=== PATIENT | male | born 1970 | race Caucasian/White ===

== ENCOUNTER 2017-09-10 02:14 | Emergency (ER) | payer MEDICAID ==
[~2017-09-10] VITALS: Ht 170.2 cm; Wt 65.0 kg
[2017-09-10 03:04] VITALS: BP 145/98
== END 2017-09-10 03:27 | disposition left against medical advice (07) ==
LOC: ER 02:14
DX: F15.10 Other stimulant abuse, uncomplicated (principal); F14.10 Cocaine abuse, uncomplicated; F17.200 Nicotine dependence, unspecified, uncomplicated; Z53.21 Procedure and treatment not carried out due to patient leaving prior to being seen by health care provider
CPT/HCPCS: 93005; Z7610

== ENCOUNTER 2017-10-01 23:11 | Emergency (ER) | payer MEDICAID ==
[~2017-10-01] VITALS: Ht 170.2 cm; Wt 71.0 kg
[2017-10-02 07:09] VITALS: BP 130/75
== END 2017-10-02 07:14 | disposition home or self-care (01) ==
LOC: ER 23:11
DX: F15.10 Other stimulant abuse, uncomplicated (principal); R44.1 Visual hallucinations; I10 Essential (primary) hypertension; F14.10 Cocaine abuse, uncomplicated; F17.210 Nicotine dependence, cigarettes, uncomplicated
CPT/HCPCS: 93005; 99283

== ENCOUNTER 2018-04-27 05:52 | Emergency (ER) | payer MEDICAID ==
[~2018-04-27] VITALS: Ht 170.2 cm; Wt 75.0 kg
[2018-04-27] MEDS ORDERED: ONDANSETRON HCL 4MG/2ML INJ IV STA (06:35)
[2018-04-27] MEDS ORDERED: SODIUM CHLORIDE 0.9% 1,000 ML IV ONE (06:35)
[2018-04-27 06:56] LABS: BASOPHILS % 0.6 % (0.0-2.0); EOSINOPHILS % 0.8 % (0.0-5.0); HEMATOCRIT. 36.7 % (42.0-52.0); HEMOGLOBIN. 11.4 g/dL (14.0-18.0); LYMPHOCYTES % 22.9 % (20.0-50.0); MEAN CORPUSCULAR HEMOGLOBIN 20.7 pg (28.0-32.0); MEAN CORPUSCULAR VOLUME 66.8 fL (80.0-94.0); MEAN PLATELET VOLUME 9.3 fl (7.4-10.4); MONOCYTES % 10.3 % (2.0-8.0); NEUTROPHILS % 65.4 % (40.0-76.0); PLATELET 328 x1000/uL (130-400); RED CELL DISTRIBUTION WIDTH 19.7 % (11.6-14.6)
[2018-04-27 07:02] LABS: CHLORIDE 102 mEq/L (98-107)
[2018-04-27 07:03] LABS: INR 1.1; PROTHROMBIN TIME 11.3 sec (9.1-11.1)
[2018-04-27 07:08] LABS: ETHANOL BLOOD < 10 mg/dL
[2018-04-27 07:38] LABS: PLATELET ESTIMATE NORMAL
[2018-04-27 08:56] LABS: CLARITY URINE CLEAR (CLEAR); COLOR URINE YELLOW (YELLOW); KETONES URINE NEGATIVE (NEGATIVE); LEUKOCYTE ESTERASE URINE NEGATIVE (NEGATIVE); NITRITE URINE NEGATIVE (NEGATIVE); OCCULT BLOOD URINE NEGATIVE (NEGATIVE); PH URINE 6.5 (4.5-8.0); PROTEIN URINE NEGATIVE (NEGATIVE); SPECIFIC GRAVITY URINE 1.006 (1.005-1.030); UROBILINOGEN URINE 0.2 E.U./dL (0.2-1.0)
[2018-04-27] MEDS ORDERED: POTASSIUM CHLORIDE 20MEQ TABLET SR PO ONE (09:00)
[2018-04-27 09:15] LABS: *AMPHETAMINES SCREEN URINE PRESUMTIVE POSITIVE (NEGATIVE); *BARBITURATES SCREEN URINE NEGATIVE (NEGATIVE); *BENZODIAZEPINES SCREEN URINE NEGATIVE (NEGATIVE)
[2018-04-27 09:16] LABS: *COCAINE SCREEN URINE NEGATIVE (NEGATIVE); METHADONE URINE SCREEN NEGATIVE (NEGATIVE); OPIATES URINE SCREEN NEGATIVE (NEGATIVE); PHENCYCLIDINE URINE SCREEN NEGATIVE (NEGATIVE)
[2018-04-27 09:19] LABS: CANNABINOID URINE SCREEN NEGATIVE (NEGATIVE)
[2018-04-27 13:12] VITALS: BP 121/74
== END 2018-04-27 13:14 | disposition home or self-care (01) ==
LOC: ER 05:52
DX: R11.0 Nausea (principal); E87.8 Other disorders of electrolyte and fluid balance, not elsewhere classified; F15.10 Other stimulant abuse, uncomplicated; F17.200 Nicotine dependence, unspecified, uncomplicated; D64.9 Anemia, unspecified; R03.0 Elevated blood-pressure reading, without diagnosis of hypertension
CPT/HCPCS: 36415; 80053; 80305; 80307; 80320; 80329; 81003; 83690; 83880; 84484; 85025; 85610; 99283; J2405; J7030; Z7610; G0480

== ENCOUNTER 2019-01-01 03:59 | Emergency (ER) | payer MEDICAID ==
[~2019-01-01] VITALS: Ht 170.2 cm; Wt 75.0 kg
[2019-01-01 05:19] VITALS: BP 132/87
[2019-01-01] MEDS ORDERED: IBUPROFEN 600MG TABLET PO ONE (06:45)
[2019-01-01 08:06] LABS: BASOPHILS % 0.5 % (0.0-2.0); EOSINOPHILS % 0.2 % (0.0-5.0); HEMATOCRIT. 42.7 % (42.0-52.0); LYMPHOCYTES % 15.8 % (20.0-50.0); MEAN CORPUSCULAR HEMOGLOBIN 24.8 pg (28.0-32.0); MEAN CORPUSCULAR VOLUME 75.6 fL (80.0-94.0); MEAN PLATELET VOLUME 10.1 fl (7.4-10.4); MONOCYTES % 11.2 % (2.0-8.0); NEUTROPHILS % 72.3 % (40.0-76.0); PLATELET 243 x1000/uL (130-400); RED BLOOD CELL COUNT 5.65 mill/uL (4.7-6.1); RED CELL DISTRIBUTION WIDTH 18.8 % (11.6-14.6)
[2019-01-01 08:12] LABS: CHLORIDE 101 mEq/L (98-107)
[2019-01-01 08:16] LABS: ETHANOL BLOOD < 10 mg/dL
== END 2019-01-01 08:04 | disposition left against medical advice (07) ==
LOC: ER 03:59
DX: S90.01XA Contusion of right ankle, initial encounter (principal); R00.0 Tachycardia, unspecified; F15.10 Other stimulant abuse, uncomplicated; F17.200 Nicotine dependence, unspecified, uncomplicated; X50.1XXA Overexertion from prolonged static or awkward postures, initial encounter; Y93.01 Activity, walking, marching and hiking; Y92.89 Other specified places as the place of occurrence of the external cause; Y99.8 Other external cause status
CPT/HCPCS: 36415; 73610; 80048; 80320; 85025; 93005; 99284; Z7610; G0480

== ENCOUNTER 2019-01-01 20:29 | Emergency (ER) | payer MEDICAID ==
[~2019-01-01] VITALS: Ht 170.2 cm; Wt 73.0 kg
[2019-01-01 21:17] LABS: BASOPHILS % 0.6 % (0.0-2.0); EOSINOPHILS % 0.2 % (0.0-5.0); HEMATOCRIT. 40.9 % (42.0-52.0); HEMOGLOBIN. 13.3 g/dL (14.0-18.0); LYMPHOCYTES % 15.5 % (20.0-50.0); MEAN CORPUSCULAR HEMOGLOBIN 24.6 pg (28.0-32.0); MEAN CORPUSCULAR VOLUME 75.8 fL (80.0-94.0); MONOCYTES % 12.7 % (2.0-8.0); PLATELET 245 x1000/uL (130-400); RED CELL DISTRIBUTION WIDTH 19.2 % (11.6-14.6)
[2019-01-01 21:19] LABS: CHLORIDE 100 mEq/L (98-107)
[2019-01-01] MEDS: SODIUM CHLORIDE 0.9% 1,000 ML IV ONE (21:21)
[2019-01-01 22:05] VITALS: BP 138/74
== END 2019-01-01 22:26 | disposition home or self-care (01) ==
LOC: ER 20:29
DX: S61.432A Puncture wound without foreign body of left hand, initial encounter (principal); F41.9 Anxiety disorder, unspecified; F15.10 Other stimulant abuse, uncomplicated; F17.200 Nicotine dependence, unspecified, uncomplicated; R00.0 Tachycardia, unspecified; R42 Dizziness and giddiness; R11.10 Vomiting, unspecified; R10.9 Unspecified abdominal pain; X58.XXXA Exposure to other specified factors, initial encounter; Y93.89 Activity, other specified; Y92.89 Other specified places as the place of occurrence of the external cause; Y99.8 Other external cause status
CPT/HCPCS: 36415; 71045; 80053; 84484; 85025; 96360; 99284; J7030

== ENCOUNTER 2019-01-28 10:27 | Emergency (ER) | payer MEDICAID ==
[~2019-01-28] VITALS: Ht 172.7 cm; Wt 80.0 kg
[2019-01-28] MEDS ORDERED: SODIUM CHLORIDE 0.9% 1,000 ML IV ONE (10:55)
[2019-01-28] MEDS ORDERED: LORAZEPAM 2MG/ML CPJ IV ONE (11:00)
[2019-01-28 11:18] LABS: BASOPHILS % 0.6 % (0.0-2.0); EOSINOPHILS % 0.9 % (0.0-5.0); HEMOGLOBIN. 14.6 g/dL (14.0-18.0); LYMPHOCYTES % 15.6 % (20.0-50.0); MEAN CORPUSCULAR HEMOGLOBIN 25.6 pg (28.0-32.0); MEAN CORPUSCULAR VOLUME 77.2 fL (80.0-94.0); MEAN PLATELET VOLUME 10.3 fl (7.4-10.4); MONOCYTES % 8.3 % (2.0-8.0); NEUTROPHILS % 74.6 % (40.0-76.0); PLATELET 238 x1000/uL (130-400); RED CELL DISTRIBUTION WIDTH 19.9 % (11.6-14.6)
[2019-01-28 11:23] LABS: CHLORIDE 99 mEq/L (98-107)
[2019-01-28 11:26] LABS: ETHANOL BLOOD < 10 mg/dL
[2019-01-28 11:56] LABS: PLATELET ESTIMATE NORMAL
[2019-01-28 17:20] VITALS: BP 143/72
== END 2019-01-28 17:56 | disposition home or self-care (01) ==
LOC: ER 10:27
DX: T43.621A Poisoning by amphetamines, accidental (unintentional), initial encounter (principal); F41.9 Anxiety disorder, unspecified; R00.0 Tachycardia, unspecified; Y92.018 Other place in single-family (private) house as the place of occurrence of the external cause
CPT/HCPCS: 36415; 80053; 80320; 85025; 96374; 99283; C1893; J2060; J7030; J7040; Z7610; A4315; G0480

== ENCOUNTER 2019-07-22 08:58 | Inpatient (IN) | payer MEDICAID ==
[~2019-07-22] VITALS: Ht 170.2 cm; Wt 82.6 kg
[2019-07-22] MEDS ORDERED: SODIUM CHLORIDE 0.9% 1,000 ML IV ONE ×2 (09:25→10:32)
[2019-07-22 09:59] LABS: BASOPHILS % 0.7 % (0.0-2.0); EOSINOPHILS % 0.1 % (0.0-5.0); HEMATOCRIT. 48.4 % (42.0-52.0); LYMPHOCYTES % 16.7 % (20.0-50.0); MEAN CORPUSCULAR HEMOGLOBIN 27.1 pg (28.0-32.0); MEAN CORPUSCULAR VOLUME 81.9 fL (80.0-94.0); MONOCYTES % 8.6 % (2.0-8.0); NEUTROPHILS % 73.9 % (40.0-76.0); PLATELET 228 x1000/uL (130-400); RED BLOOD CELL COUNT 5.92 mill/uL (4.7-6.1)
[2019-07-22 10:05] LABS: CHLORIDE 93 mEq/L (98-107); CLARITY URINE CLEAR (CLEAR); COLOR URINE YELLOW (YELLOW); KETONES URINE 3+ (NEGATIVE); LEUKOCYTE ESTERASE URINE NEGATIVE (NEGATIVE); NITRITE URINE NEGATIVE (NEGATIVE); OCCULT BLOOD URINE NEGATIVE (NEGATIVE); PROTEIN URINE NEGATIVE (NEGATIVE); SPECIFIC GRAVITY URINE 1.041 (1.005-1.030); UROBILINOGEN URINE 0.2 E.U./dL (0.2-1.0)
[2019-07-22 10:14] LABS: BETA HYDROXYBUTYRATE 4.7 mMol/L (0.0-0.3)
[2019-07-22 10:14] LABS: BG CARBOXYHEMOGLOBIN 0.7 % (0.5-1.5); BG DEOXYHEMOGLOBIN 4.1 % (0.0-5.0); BG FRACTION INSPIRED OXYGEN 21; BG HCO3 ACT 15.3 mmol/L (22.0-26.0); BG METHEMOGLOBIN 0.5 % (0.0-1.5); BG OXYGEN SATURATION 95.9 % (92.0-98.5); BG OXYHEMOGLOBIN 94.7 % (94.0-97.0); BG PCO2 32.7 mmHg (35.0-45.0); BG PH 7.289 (7.350-7.450); BG SAMPLE SITE RIGHT RADIAL; BG TOTAL HEMOGLOBIN 16.4 g/dL (12.0-18.0); BG VENT MODE ROOM AIR
[2019-07-22] MEDS ORDERED: INSULIN REGULAR (DRIP) 100 UNITS in SODIUM CHLORIDE 0.9% 99 ML IV SCH (10:45)
[2019-07-22] MEDS ORDERED: SODIUM CHLORIDE 0.9% 1,000 ML IV SCH (13:11)
[2019-07-22] MEDS ORDERED: ACETAMINOPHEN 325MG TABLET PO PRN (13:15)
[2019-07-22] MEDS ORDERED: ONDANSETRON HCL 4MG/2ML INJ IV PRN (13:15)
[2019-07-22] MEDS ORDERED: VANCOMYCIN 1250MG in DEXTROSE 5% WATER 250ML IV NR (14:30)
[2019-07-22 15:40] LABS: CHLORIDE 106 mEq/L (98-107)
[2019-07-22] MEDS ORDERED: PIPERACILLIN/TAZOBACTAM 3.375 G in DEXTROSE 5% WATER 50 ML IV SCH (18:00)
[2019-07-22] MEDS: PIPERACILLIN/TAZ 3.375G PREMIX 50 ML IV SCH (18:21)
[2019-07-22] MEDS ORDERED: TRAZODONE HCL 50MG TABLET PO PRN (21:00)
[2019-07-22 23:15] LABS: CHLORIDE 106 mEq/L (98-107)
[2019-07-23] VITALS (10 sets, daily range): BP systolic 124–162; BP diastolic 73–95
[2019-07-23] MEDS ORDERED: VANCOMYCIN 750 MG PREMIX 150 ML IV SCH
[2019-07-23] MEDS: PIPERACILLIN/TAZ 3.375G PREMIX 50 ML IV SCH ×4 (00:35→18:17)
[2019-07-23 00:45] LABS: CHLORIDE 103 mEq/L (98-107)
[2019-07-23] MEDS ORDERED: VANCOMYCIN 1250MG in DEXTROSE 5% WATER 250ML IV SCH ×3 (01:00)
[2019-07-23] MEDS ORDERED: INSULIN REGULAR (DRIP) 100 UNITS in SODIUM CHLORIDE 0.9% 99 ML IV SCH (02:00)
[2019-07-23] MEDS: HEPARIN 5000 UNITS/ML VIAL SUBCUT SCH ×3 (03:20→21:14)
[2019-07-23 04:12] LABS: CHLORIDE 105 mEq/L (98-107)
[2019-07-23 04:15] LABS: HEMATOCRIT. 40.8 % (42.0-52.0); MEAN CORPUSCULAR HEMOGLOBIN 27.4 pg (28.0-32.0); PLATELET 179 x1000/uL (130-400); RED CELL DISTRIBUTION WIDTH 18.7 % (11.6-14.6)
[2019-07-23 04:16] LABS: BASOPHILS % 0.8 % (0.0-2.0); EOSINOPHILS % 0.7 % (0.0-5.0); LYMPHOCYTES % 17.7 % (20.0-50.0); MEAN PLATELET VOLUME 10.6 fl (7.4-10.4); NEUTROPHILS % 73.8 % (40.0-76.0)
[2019-07-23] MEDS ORDERED: DEXT 5%/0.45% NACL 1000ML 1,000 ML IV SCH (06:00)
[2019-07-23] MEDS ORDERED: POTASSIUM CHLORIDE 20MEQ TABLET SR PO SCH (06:00)
[2019-07-23] MEDS ORDERED: INSULIN GLARGINE UD 100 UNITS/ML SYR SUBCUT SCH (07:00)
[2019-07-23 08:16] LABS: CHLORIDE 103 mEq/L (98-107)
[2019-07-23 09:22] LABS: METHADONE URINE SCREEN NEGATIVE (NEGATIVE)
[2019-07-23 09:23] LABS: *AMPHETAMINES SCREEN URINE PRESUMTIVE POSITIVE (NEGATIVE); *BARBITURATES SCREEN URINE NEGATIVE (NEGATIVE); *BENZODIAZEPINES SCREEN URINE NEGATIVE (NEGATIVE); *COCAINE SCREEN URINE NEGATIVE (NEGATIVE); CANNABINOID URINE SCREEN NEGATIVE (NEGATIVE); OPIATES URINE SCREEN NEGATIVE (NEGATIVE); PHENCYCLIDINE URINE SCREEN NEGATIVE (NEGATIVE)
[2019-07-23] MEDS ORDERED: POTASSIUM CHLORIDE 20MEQ TABLET SR PO NR (11:45)
[2019-07-23] MEDS ORDERED: DEXTROSE 50% WATER 50ML SYRINGE IV PRN ×2 (11:45→13:15)
[2019-07-23] MEDS ORDERED: PIPERACILLIN/TAZ 3.375G PREMIX 50 ML IV SCH (12:00)
[2019-07-23] MEDS: BLOOD SUGAR DIAGNOSTIC STRIP TEST SCH ×3 (12:30→21:15)
[2019-07-23 12:41] LABS: CHLORIDE 101 mEq/L (98-107)
[2019-07-23] MEDS: INSULIN REGULAR (HUMULIN R) 300UNITS/3ML SUBCUT SCH ×2 (13:00→18:21)
[2019-07-23] MEDS: VANCOMYCIN 1 G PREMIX 200 ML IV SCH ×2 (13:35→21:15)
[2019-07-23] MEDS: INSULIN LISPRO 100 UNITS/ML SUBCUT SCH ×3 (13:57→21:15)
[2019-07-23] MEDS ORDERED: VANCOMYCIN 1 G PREMIX 200 ML IV SCH (14:00)
[2019-07-23] MEDS ORDERED: INSULIN GLARGINE UD 100 UNITS/ML SYR SUBCUT NR (15:00)
[2019-07-23] MEDS ORDERED: INSULIN LISPRO 100 UNITS/ML SUBCUT SCH (18:00)
[2019-07-23 18:06] LABS: CHLORIDE 103 mEq/L (98-107)
[2019-07-23 20:32] LABS: CHLORIDE 102 mEq/L (98-107)
[2019-07-24] VITALS (9 sets, daily range): BP systolic 103–138; BP diastolic 56–99
[2019-07-24] MEDS: PIPERACILLIN/TAZ 3.375G PREMIX 50 ML IV SCH ×4 (00:27→18:00)
[2019-07-24 00:42] LABS: CHLORIDE 103 mEq/L (98-107)
[2019-07-24 06:08] LABS: CHLORIDE 103 mEq/L (98-107)
[2019-07-24 06:16] LABS: VANCOMYCIN TROUGH 10.7 ug/mL (5.0-10.0)
[2019-07-24 06:23] LABS: BASOPHILS % 0.5 % (0.0-2.0); EOSINOPHILS % 1.5 % (0.0-5.0); HEMATOCRIT. 41.9 % (42.0-52.0); HEMOGLOBIN. 14.1 g/dL (14.0-18.0); LYMPHOCYTES % 32.9 % (20.0-50.0); MEAN CORPUSCULAR HEMOGLOBIN 27.3 pg (28.0-32.0); MEAN CORPUSCULAR VOLUME 80.6 fL (80.0-94.0); MEAN PLATELET VOLUME 10.9 fl (7.4-10.4); MONOCYTES % 6.7 % (2.0-8.0); NEUTROPHILS % 58.4 % (40.0-76.0); PLATELET 173 x1000/uL (130-400); RED BLOOD CELL COUNT 5.19 mill/uL (4.7-6.1)
[2019-07-24] MEDS: VANCOMYCIN 1 G PREMIX 200 ML IV SCH (06:50)
[2019-07-24] MEDS: BLOOD SUGAR DIAGNOSTIC STRIP TEST SCH ×3 (07:30→17:30)
[2019-07-24] MEDS: INSULIN REGULAR (HUMULIN R) 300UNITS/3ML SUBCUT SCH ×3 (08:35→18:02)
[2019-07-24] MEDS: INSULIN LISPRO 100 UNITS/ML SUBCUT SCH ×3 (08:35→18:00)
[2019-07-24] MEDS: HEPARIN 5000 UNITS/ML VIAL SUBCUT SCH (09:08)
[2019-07-24] MEDS ORDERED: INSULIN GLARGINE UD 100 UNITS/ML SYR SUBCUT SCH ×4 (10:00→14:00)
[2019-07-24] MEDS ORDERED: VANCOMYCIN 1250MG in DEXTROSE 5% WATER 250ML IV SCH (13:00)
[2019-07-24 13:22] LABS: CHLORIDE 101 mEq/L (98-107)
[2019-07-24] MEDS ORDERED: POTASSIUM CHLORIDE 20MEQ TABLET SR PO SCH (14:00)
[2019-07-24] MEDS ORDERED: INSU100V3 SUBCUT (14:04)
[2019-07-24] MEDS ORDERED: LANTUSUD SUBCUT (14:04)
[2019-07-24] MEDS ORDERED: SENNOSIDES/DOCUSATE SOD 8.6/50MG TABLET PO NR (14:45)
[2019-07-24] MEDS ORDERED: MAGNESIUM HYDROXIDE 400MG/5ML 30ML UDC PO NR (14:45)
== END 2019-07-24 23:10 | disposition home or self-care (01) | DRG 720 ==
LOC: ER 08:58 → 5EST 11:11 → EDBEDREQDT 07-23 06:02 → EDBEDREQSVC 07-23 06:02 → EDBEDREQTM 07-23 06:02 → ENRESERV 07-23 07:44 → 5EST 07-23 09:27
PROVIDERS: ADMIT Internal Medicine; ATTEND Internal Medicine
DX: A41.9 Sepsis, unspecified organism (principal); E11.10 Type 2 diabetes mellitus with ketoacidosis without coma; E87.8 Other disorders of electrolyte and fluid balance, not elsewhere classified; E87.1 Hypo-osmolality and hyponatremia; E87.6 Hypokalemia; E86.0 Dehydration; F15.10 Other stimulant abuse, uncomplicated; E78.00 Pure hypercholesterolemia, unspecified; Z79.4 Long term (current) use of insulin; Z71.51 Drug abuse counseling and surveillance of drug abuser
CPT/HCPCS: 36415; 36600; 71045; 80048; 80053; 80202; 80305; 81003; 82010; 82375; 82805; 82962; 83036; 83735; 84484; 85025; 93005; 96365; 99291; J1644; J1815; J2405; J2543; J3370; J7030; J7050; J7060

== ENCOUNTER 2019-08-14 19:39 | Emergency (ER) | payer MEDICAID, OTHER ==
[~2019-08-14] VITALS: Ht 170.2 cm; Wt 80.0 kg
[~2019-08-14 19:39] MED LIST: INSU100V3 SUBCUT; LANTUSUD SUBCUT
[2019-08-14] MEDS ORDERED: ASPIRIN 81MG TABLET PO ONE (20:15)
[2019-08-14] MEDS ORDERED: SODIUM CHLORIDE 0.9% 1,000 ML IV ONE (20:45)
[2019-08-14] MEDS ORDERED: LORAZEPAM 1MG TABLET PO ONE (20:45)
[2019-08-14 21:14] LABS: BASOPHILS % 0.7 % (0.0-2.0); EOSINOPHILS % 0.8 % (0.0-5.0); HEMATOCRIT. 39.9 % (42.0-52.0); HEMOGLOBIN. 13.2 g/dL (14.0-18.0); LYMPHOCYTES % 17.3 % (20.0-50.0); MEAN CORPUSCULAR HEMOGLOBIN 26.7 pg (28.0-32.0); MEAN CORPUSCULAR VOLUME 80.5 fL (80.0-94.0); MEAN PLATELET VOLUME 9.5 fl (7.4-10.4); MONOCYTES % 11.4 % (2.0-8.0); NEUTROPHILS % 69.8 % (40.0-76.0); PLATELET 287 x1000/uL (130-400); RED BLOOD CELL COUNT 4.95 mill/uL (4.7-6.1); RED CELL DISTRIBUTION WIDTH 18.7 % (11.6-14.6)
[2019-08-14] MEDS ORDERED: ACETAMINOPHEN 650MG/20.3ML UDC PO SCH (21:15)
[2019-08-14 21:20] LABS: CHLORIDE 102 mEq/L (98-107)
[2019-08-15 02:07] VITALS: BP 107/64
== END 2019-08-15 03:29 | disposition home or self-care (01) ==
LOC: ER 19:43
DX: F19.10 Other psychoactive substance abuse, uncomplicated (principal); R07.9 Chest pain, unspecified; R00.0 Tachycardia, unspecified; E11.9 Type 2 diabetes mellitus without complications; Z79.4 Long term (current) use of insulin
CPT/HCPCS: 36415; 71045; 80053; 80307; 83880; 84484; 85025; 93005; 99285; J7030; Z7610

== ENCOUNTER 2019-10-04 01:52 | Emergency (ER) | payer OTHER, MEDICAID ==
[~2019-10-04] VITALS: Ht 170.2 cm; Wt 77.0 kg
[2019-10-04] MEDS ORDERED: ASPIRIN 81MG TABLET PO ONE (02:30)
[2019-10-04 03:19] LABS: BASOPHILS % 0.6 % (0.0-2.0); CHLORIDE 104 mEq/L (98-107); EOSINOPHILS % 0.6 % (0.0-5.0); HEMATOCRIT. 41.3 % (42.0-52.0); HEMOGLOBIN. 13.4 g/dL (14.0-18.0); LYMPHOCYTES % 22.6 % (20.0-50.0); MEAN CORPUSCULAR HEMOGLOBIN 24.6 pg (28.0-32.0); MEAN CORPUSCULAR VOLUME 75.9 fL (80.0-94.0); MEAN PLATELET VOLUME 10.2 fl (7.4-10.4); MONOCYTES % 11.7 % (2.0-8.0); NEUTROPHILS % 64.5 % (40.0-76.0); PLATELET 309 x1000/uL (130-400); RED BLOOD CELL COUNT 5.44 mill/uL (4.7-6.1); RED CELL DISTRIBUTION WIDTH 19.7 % (11.6-14.6)
[2019-10-04 04:00] VITALS: BP 140/90
== END 2019-10-04 04:34 | disposition home or self-care (01) ==
LOC: ER 02:00
DX: F15.10 Other stimulant abuse, uncomplicated (principal); R53.1 Weakness; E11.9 Type 2 diabetes mellitus without complications
CPT/HCPCS: 36415; 71045; 80053; 82962; 83880; 84484; 85025; 93005; 99285; Z7610

== ENCOUNTER 2019-10-07 02:48 | Emergency (ER) | payer OTHER, MEDICAID ==
[~2019-10-07] VITALS: Ht 170.2 cm; Wt 75.0 kg
[2019-10-07 02:54] VITALS: BP 144/108
== END 2019-10-07 03:05 | disposition left against medical advice (07) ==
LOC: ER 02:53
DX: Z53.21 Procedure and treatment not carried out due to patient leaving prior to being seen by health care provider (principal)
CPT/HCPCS: 93005

== ENCOUNTER 2019-10-22 12:09 | Emergency (ER) | payer OTHER ==
[~2019-10-22] VITALS: Ht 170.2 cm; Wt 73.0 kg
[2019-10-22] MEDS ORDERED: SODIUM CHLORIDE 0.9% 1,000 ML IV ONE (12:43)
[2019-10-22] MEDS ORDERED: ONDANSETRON HCL 4MG/2ML INJ IV STA (12:43)
[2019-10-22 12:54] LABS: EOSINOPHILS % 0.4 % (0.0-5.0); HEMATOCRIT. 42.1 % (42.0-52.0); HEMOGLOBIN. 13.7 g/dL (14.0-18.0); LYMPHOCYTES % 20.5 % (20.0-50.0); MEAN CORPUSCULAR HEMOGLOBIN 24.6 pg (28.0-32.0); MEAN CORPUSCULAR VOLUME 75.5 fL (80.0-94.0); MEAN PLATELET VOLUME 10.2 fl (7.4-10.4); MONOCYTES % 9.5 % (2.0-8.0); NEUTROPHILS % 68.6 % (40.0-76.0); PLATELET 305 x1000/uL (130-400); RED BLOOD CELL COUNT 5.57 mill/uL (4.7-6.1); RED CELL DISTRIBUTION WIDTH 21.1 % (11.6-14.6)
[2019-10-22 13:02] LABS: CHLORIDE 104 mEq/L (98-107); CLARITY URINE CLOUDY (CLEAR); COLOR URINE DARK YELLOW (YELLOW); KETONES URINE 2+ (NEGATIVE); LEUKOCYTE ESTERASE URINE NEGATIVE (NEGATIVE); NITRITE URINE NEGATIVE (NEGATIVE); OCCULT BLOOD URINE NEGATIVE (NEGATIVE); PH URINE 5.5 (4.5-8.0); PROTEIN URINE 1+ (NEGATIVE); SPECIFIC GRAVITY URINE 1.033 (1.005-1.030)
[2019-10-22 13:05] LABS: INR 1.1; PROTHROMBIN TIME 11.6 sec (9.6-11.0)
[2019-10-22 14:53] VITALS: BP 126/76
== END 2019-10-22 14:55 | disposition left against medical advice (07) ==
LOC: ER 12:15
DX: R11.2 Nausea with vomiting, unspecified (principal); F15.20 Other stimulant dependence, uncomplicated; F12.10 Cannabis abuse, uncomplicated; I49.9 Cardiac arrhythmia, unspecified; Z79.4 Long term (current) use of insulin
CPT/HCPCS: 36415; 80053; 81003; 83605; 83690; 84484; 85025; 85610; 93005; 96361; 96374; 99284; J2405; J7030

== ENCOUNTER 2020-03-29 03:14 | Emergency (ER) | payer OTHER ==
[~2020-03-29] VITALS: Ht 170.2 cm; Wt 78.0 kg
[2020-03-29] MEDS ORDERED: ONDANSETRON HCL 4MG/2ML INJ IV STA (03:48)
[2020-03-29] MEDS ORDERED: MAGNESIUM/ALUMINUM HYDROXIDE/SIMETHICONE 30ML UDC PO STA (03:48)
[2020-03-29] MEDS ORDERED: SODIUM CHLORIDE 0.9% 1,000 ML IV ONE (04:00)
[2020-03-29 04:51] VITALS: BP 169/110
[2020-03-29 05:44] LABS: BASOPHILS % 0.5 % (0.0-2.0); EOSINOPHILS % 0.1 % (0.0-5.0); HEMATOCRIT. 48.8 % (42.0-52.0); HEMOGLOBIN. 15.2 g/dL (14.0-18.0); LYMPHOCYTES % 14.2 % (20.0-50.0); MEAN CORPUSCULAR HEMOGLOBIN 24.4 pg (28.0-32.0); MEAN CORPUSCULAR VOLUME 78.4 fL (80.0-94.0); MEAN PLATELET VOLUME 10.8 fl (7.4-10.4); MONOCYTES % 9.2 % (2.0-8.0); PLATELET 288 x1000/uL (130-400); RED BLOOD CELL COUNT 6.22 mill/uL (4.7-6.1); RED CELL DISTRIBUTION WIDTH 18.5 % (11.6-14.6)
[2020-03-29 05:45] LABS: *COCAINE SCREEN URINE NEGATIVE (NEGATIVE)
[2020-03-29 05:46] LABS: *AMPHETAMINES SCREEN URINE PRESUMTIVE POSITIVE (NEGATIVE); *BARBITURATES SCREEN URINE NEGATIVE (NEGATIVE); *BENZODIAZEPINES SCREEN URINE NEGATIVE (NEGATIVE); CANNABINOID URINE SCREEN PRESUMTIVE POSITIVE (NEGATIVE); METHADONE URINE SCREEN NEGATIVE (NEGATIVE); OPIATES URINE SCREEN NEGATIVE (NEGATIVE); PHENCYCLIDINE URINE SCREEN NEGATIVE (NEGATIVE)
[2020-03-29 05:48] LABS: CHLORIDE 99 mEq/L (98-107)
== END 2020-03-29 06:55 | disposition home or self-care (01) ==
LOC: ER 03:14
DX: E11.65 Type 2 diabetes mellitus with hyperglycemia (principal); F12.10 Cannabis abuse, uncomplicated; F15.10 Other stimulant abuse, uncomplicated; F19.10 Other psychoactive substance abuse, uncomplicated; R10.13 Epigastric pain
CPT/HCPCS: 36415; 80053; 80305; 82962; 83690; 85025; 93005; 96360; 99283; J2405; J7030; Z7610

== ENCOUNTER 2020-04-13 12:07 | Emergency (ER) | payer MEDICAID, OTHER ==
[~2020-04-13] VITALS: Ht 170.2 cm; Wt 77.5 kg
[2020-04-13 13:05] LABS: BASOPHILS % 0.6 % (0.0-2.0); EOSINOPHILS % 1.1 % (0.0-5.0); HEMATOCRIT. 43.5 % (42.0-52.0); HEMOGLOBIN. 14.3 g/dL (14.0-18.0); LYMPHOCYTES % 26.5 % (20.0-50.0); MEAN CORPUSCULAR HEMOGLOBIN 25.9 pg (28.0-32.0); MEAN CORPUSCULAR VOLUME 78.5 fL (80.0-94.0); MEAN PLATELET VOLUME 10.8 fl (7.4-10.4); MONOCYTES % 7.3 % (2.0-8.0); NEUTROPHILS % 64.5 % (40.0-76.0); PLATELET 171 x1000/uL (130-400); RED BLOOD CELL COUNT 5.54 mill/uL (4.7-6.1); RED CELL DISTRIBUTION WIDTH 18.3 % (11.6-14.6)
[2020-04-13 13:13] LABS: CHLORIDE 98 mEq/L (98-107)
[2020-04-13 13:15] LABS: CLARITY URINE CLEAR (CLEAR); COLOR URINE YELLOW (YELLOW); KETONES URINE TRACE (NEGATIVE); LEUKOCYTE ESTERASE URINE NEGATIVE (NEGATIVE); NITRITE URINE NEGATIVE (NEGATIVE); OCCULT BLOOD URINE NEGATIVE (NEGATIVE); PH URINE 6.5 (4.5-8.0); PROTEIN URINE NEGATIVE (NEGATIVE); SPECIFIC GRAVITY URINE 1.046 (1.005-1.030); UROBILINOGEN URINE 0.2 E.U./dL (0.2-1.0)
[2020-04-13 13:19] LABS: PHOSPHORUS 3.7 mg/dL (2.5-4.9)
[2020-04-13 13:39] LABS: BG CARBOXYHEMOGLOBIN 0.8 % (0.5-1.5); BG DEOXYHEMOGLOBIN 2.8 % (0.0-5.0); BG FRACTION INSPIRED OXYGEN 21; BG HCO3 ACT 23.4 mmol/L (22.0-26.0); BG METHEMOGLOBIN 0.4 % (0.0-1.5); BG OXYGEN SATURATION 97.2 % (92.0-98.5); BG PCO2 38.4 mmHg (35.0-45.0); BG PH 7.403 (7.350-7.450); BG PO2 93.7 mmHg (75.0-100.0); BG SAMPLE SITE RIGHT RADIAL; BG TOTAL HEMOGLOBIN 14.3 g/dL (12.0-18.0); BG VENT MODE ROOM AIR
[2020-04-13] MEDS ORDERED: SODIUM CHLORIDE 0.9% 1,000 ML IV SCH (15:15)
[2020-04-13 17:02] VITALS: BP 131/82
== END 2020-04-13 17:03 | disposition home or self-care (01) ==
LOC: ER 12:42
DX: E11.65 Type 2 diabetes mellitus with hyperglycemia (principal); F12.10 Cannabis abuse, uncomplicated; Z79.4 Long term (current) use of insulin
CPT/HCPCS: 36415; 36600; 80053; 81003; 82375; 82805; 82962; 83735; 83880; 84100; 84484; 85025; 93005; 99283

== ENCOUNTER 2020-04-15 03:21 | Emergency (ER) | payer MEDICAID, OTHER ==
[~2020-04-15] VITALS: Ht 172.7 cm; Wt 77.0 kg
[2020-04-15] MEDS ORDERED: SODIUM CHLORIDE 0.9% 1,000 ML IV ONE (03:45)
[2020-04-15] MEDS ORDERED: INSULIN REGULAR (HUMULIN R) 300UNITS/3ML VIAL SUBCUT ONE (03:45)
[2020-04-15 04:17] LABS: BASOPHILS % 0.8 % (0.0-2.0); EOSINOPHILS % 1.4 % (0.0-5.0); HEMOGLOBIN. 13.4 g/dL (14.0-18.0); MEAN CORPUSCULAR HEMOGLOBIN 25.8 pg (28.0-32.0); MEAN CORPUSCULAR VOLUME 79.3 fL (80.0-94.0); MEAN PLATELET VOLUME 11.5 fl (7.4-10.4); MONOCYTES % 8.1 % (2.0-8.0); NEUTROPHILS % 52.7 % (40.0-76.0); PLATELET 149 x1000/uL (130-400); RED BLOOD CELL COUNT 5.18 mill/uL (4.7-6.1); RED CELL DISTRIBUTION WIDTH 19.3 % (11.6-14.6)
[2020-04-15 04:21] LABS: CHLORIDE 99 mEq/L (98-107)
[2020-04-15 04:30] LABS: CLARITY URINE CLEAR (CLEAR); COLOR URINE YELLOW (YELLOW); KETONES URINE NEGATIVE (NEGATIVE); LEUKOCYTE ESTERASE URINE NEGATIVE (NEGATIVE); NITRITE URINE NEGATIVE (NEGATIVE); OCCULT BLOOD URINE NEGATIVE (NEGATIVE); PROTEIN URINE NEGATIVE (NEGATIVE); SPECIFIC GRAVITY URINE 1.019 (1.005-1.030); UROBILINOGEN URINE 0.2 E.U./dL (0.2-1.0)
[2020-04-15 04:31] LABS: BETA HYDROXYBUTYRATE 0.1 mMol/L (0.0-0.3)
[2020-04-15 05:51] VITALS: BP 138/77
== END 2020-04-15 05:52 | disposition home or self-care (01) ==
LOC: ER 03:21
DX: E10.65 Type 1 diabetes mellitus with hyperglycemia (principal); F12.10 Cannabis abuse, uncomplicated; Z79.4 Long term (current) use of insulin; Z91.14 Patient's other noncompliance with medication regimen
CPT/HCPCS: 36415; 80053; 81003; 82010; 82962; 83690; 85025; 93005; 96360; 96361; 96372; 99284; J1815; J7030

== ENCOUNTER 2020-05-01 22:56 | Emergency (ER) | payer MEDICAID ==
[~2020-05-01] VITALS: Ht 170.2 cm; Wt 78.0 kg
[2020-05-02] MEDS ORDERED: KETOROLAC 60MG/2ML VIAL IM ONE (00:15)
[2020-05-02 01:58] VITALS: BP 125/76
== END 2020-05-02 02:52 | disposition home or self-care (01) ==
LOC: ER 22:56
DX: R51.9 Headache, unspecified (principal); F19.10 Other psychoactive substance abuse, uncomplicated; E11.9 Type 2 diabetes mellitus without complications; Z79.4 Long term (current) use of insulin
CPT/HCPCS: 82962; 96372; 99283; J1885

== ENCOUNTER 2020-06-17 23:11 | Emergency (ER) | payer MEDICAID ==
[~2020-06-17] VITALS: Ht 170.2 cm; Wt 75.0 kg
[2020-06-18] MEDS ORDERED: ACETAMINOPHEN 325MG TABLET PO STA (00:15)
[2020-06-18 01:56] LABS: BASOPHILS % 0.5 % (0.0-2.0); EOSINOPHILS % 0.8 % (0.0-5.0); HEMATOCRIT. 42.9 % (42.0-52.0); HEMOGLOBIN. 14.2 g/dL (14.0-18.0); LYMPHOCYTES % 24.8 % (20.0-50.0); MEAN CORPUSCULAR HEMOGLOBIN 26.4 pg (28.0-32.0); MEAN CORPUSCULAR VOLUME 79.9 fL (80.0-94.0); MEAN PLATELET VOLUME 10.3 fl (7.4-10.4); MONOCYTES % 11.6 % (2.0-8.0); NEUTROPHILS % 62.3 % (40.0-76.0); PLATELET 226 x1000/uL (130-400); RED BLOOD CELL COUNT 5.37 mill/uL (4.7-6.1); RED CELL DISTRIBUTION WIDTH 19.6 % (11.6-14.6)
[2020-06-18 02:02] LABS: CHLORIDE 105 mEq/L (98-107)
[2020-06-18 02:06] LABS: PROTHROMBIN TIME 11.2 sec (9.6-11.0)
[2020-06-18 02:07] LABS: ETHANOL BLOOD < 10 mg/dL
[2020-06-18 03:01] LABS: CLARITY URINE CLEAR (CLEAR); COLOR URINE DARK YELLOW (YELLOW); KETONES URINE 1+ (NEGATIVE); LEUKOCYTE ESTERASE URINE NEGATIVE (NEGATIVE); NITRITE URINE NEGATIVE (NEGATIVE); OCCULT BLOOD URINE NEGATIVE (NEGATIVE); PH URINE 5.5 (4.5-8.0); PROTEIN URINE TRACE (NEGATIVE); SPECIFIC GRAVITY URINE 1.032 (1.005-1.030)
[2020-06-18 03:15] LABS: METHADONE URINE SCREEN NEGATIVE (NEGATIVE); OPIATES URINE SCREEN NEGATIVE (NEGATIVE)
[2020-06-18 03:17] LABS: *AMPHETAMINES SCREEN URINE PRESUMTIVE POSITIVE (NEGATIVE); *BARBITURATES SCREEN URINE NEGATIVE (NEGATIVE); *BENZODIAZEPINES SCREEN URINE NEGATIVE (NEGATIVE); *COCAINE SCREEN URINE NEGATIVE (NEGATIVE); CANNABINOID URINE SCREEN PRESUMTIVE POSITIVE (NEGATIVE); PHENCYCLIDINE URINE SCREEN NEGATIVE (NEGATIVE)
[2020-06-18 05:13] VITALS: BP 121/78
== END 2020-06-18 05:14 | disposition home or self-care (01) ==
LOC: ER 23:52
DX: F15.10 Other stimulant abuse, uncomplicated (principal); F12.10 Cannabis abuse, uncomplicated; F19.10 Other psychoactive substance abuse, uncomplicated; R10.9 Unspecified abdominal pain; E11.9 Type 2 diabetes mellitus without complications; Z79.4 Long term (current) use of insulin
CPT/HCPCS: 36415; 71045; 80053; 80305; 80320; 81003; 82962; 85025; 93005; 99285; G0480

== ENCOUNTER 2021-03-30 22:05 | Emergency (ER) | payer MEDICAID, OTHER ==
[~2021-03-30] VITALS: Ht 170.2 cm; Wt 82.0 kg
[2021-03-30 23:20] VITALS: BP 143/100
== END 2021-03-30 23:43 | disposition home or self-care (01) ==
LOC: ER 22:05
DX: R11.2 Nausea with vomiting, unspecified (principal); G47.00 Insomnia, unspecified; F17.290 Nicotine dependence, other tobacco product, uncomplicated; F15.10 Other stimulant abuse, uncomplicated; E11.9 Type 2 diabetes mellitus without complications
CPT/HCPCS: 99281; 99406

== ENCOUNTER 2021-04-27 00:56 | Emergency (ER) | payer MEDICAID ==
[~2021-04-27] VITALS: Ht 170.2 cm; Wt 82.0 kg
[2021-04-27] MEDS ORDERED: MAGNESIUM/ALUMINUM HYDROXIDE/SIMETHICONE 30ML UDC PO ONE (02:00)
[2021-04-27] MEDS ORDERED: VISCOUS LIDOCAINE 2% 15 ML UDC MM ONE (02:00)
[2021-04-27] MEDS ORDERED: FAMOTIDINE 20MG TABLET PO ONE (02:00)
[2021-04-27 03:29] LABS: BASOPHILS % 0.7 % (0.0-2.0); EOSINOPHILS % 0.5 % (0.0-5.0); HEMATOCRIT. 47.9 % (42.0-52.0); HEMOGLOBIN. 16.3 g/dL (14.0-18.0); LYMPHOCYTES % 19.1 % (20.0-50.0); MEAN CORPUSCULAR HEMOGLOBIN 27.9 pg (28.0-32.0); MONOCYTES % 8.5 % (2.0-8.0); NEUTROPHILS % 71.2 % (40.0-76.0); PLATELET 236 x1000/uL (130-400); RED BLOOD CELL COUNT 5.84 mill/uL (4.7-6.1); RED CELL DISTRIBUTION WIDTH 17.3 % (11.6-14.6)
[2021-04-27 03:36] LABS: CHLORIDE 103 mEq/L (98-107)
[2021-04-27] MEDS ORDERED: SODIUM CHLORIDE 0.9% 1,000 ML IV ONE (04:00)
[2021-04-27 04:09] LABS: *AMPHETAMINES SCREEN URINE NEGATIVE (NEGATIVE); *BARBITURATES SCREEN URINE NEGATIVE (NEGATIVE); CANNABINOID URINE SCREEN PRESUMTIVE POSITIVE (NEGATIVE); METHADONE URINE SCREEN NEGATIVE (NEGATIVE); OPIATES URINE SCREEN NEGATIVE (NEGATIVE); PHENCYCLIDINE URINE SCREEN NEGATIVE (NEGATIVE)
[2021-04-27 04:10] LABS: *BENZODIAZEPINES SCREEN URINE NEGATIVE (NEGATIVE); *COCAINE SCREEN URINE NEGATIVE (NEGATIVE)
[2021-04-27] MEDS ORDERED: METF-414 MT (04:26)
[2021-04-27] MEDS ORDERED: PROT20 MT (04:27)
[2021-04-27] MEDS ORDERED: HYDROCODONE/ACETAMINOPHEN 5/325MG TABLET PO ONE (04:45)
[2021-04-27 06:15] VITALS: BP 148/98
== END 2021-04-27 06:19 | disposition home or self-care (01) ==
LOC: ER 00:56
DX: R10.13 Epigastric pain (principal); E11.65 Type 2 diabetes mellitus with hyperglycemia; F15.10 Other stimulant abuse, uncomplicated
CPT/HCPCS: 36415; 71045; 76705; 80053; 80305; 82962; 83690; 83880; 84484; 85025; 93005; 99285; Z7610; A4315

== ENCOUNTER 2021-04-28 21:11 | Emergency (ER) | payer MEDICAID ==
[~2021-04-28] VITALS: Ht 170.2 cm; Wt 82.0 kg
[~2021-04-28 21:11] MED LIST changes: +METF-414 MT; +PROT20 MT
[2021-04-29] MEDS ORDERED: ACETAMINOPHEN 500MG TABLET PO ONE (04:00)
[2021-04-29] MEDS ORDERED: SODIUM CHLORIDE 0.9% 1,000 ML IV ONE (04:00)
[2021-04-29 04:24] LABS: BASOPHILS % 0.7 % (0.0-2.0); EOSINOPHILS % 1.2 % (0.0-5.0); HEMATOCRIT. 43.8 % (42.0-52.0); HEMOGLOBIN. 15.1 g/dL (14.0-18.0); LYMPHOCYTES % 40.3 % (20.0-50.0); MEAN CORPUSCULAR VOLUME 81.4 fL (80.0-94.0); MEAN PLATELET VOLUME 10.6 fl (7.4-10.4); MONOCYTES % 8.9 % (2.0-8.0); NEUTROPHILS % 48.9 % (40.0-76.0); PLATELET 201 x1000/uL (130-400); RED BLOOD CELL COUNT 5.39 mill/uL (4.7-6.1); RED CELL DISTRIBUTION WIDTH 16.5 % (11.6-14.6)
[2021-04-29 04:36] LABS: CHLORIDE 99 mEq/L (98-107)
[2021-04-29 04:42] LABS: BETA HYDROXYBUTYRATE 1.4 mMol/L (0.0-0.3)
[2021-04-29 05:34] LABS: *AMPHETAMINES SCREEN URINE NEGATIVE (NEGATIVE); *BARBITURATES SCREEN URINE NEGATIVE (NEGATIVE); *BENZODIAZEPINES SCREEN URINE NEGATIVE (NEGATIVE); *COCAINE SCREEN URINE NEGATIVE (NEGATIVE); METHADONE URINE SCREEN NEGATIVE (NEGATIVE); OPIATES URINE SCREEN NEGATIVE (NEGATIVE)
[2021-04-29 05:35] LABS: CANNABINOID URINE SCREEN PRESUMTIVE POSITIVE (NEGATIVE); PHENCYCLIDINE URINE SCREEN NEGATIVE (NEGATIVE)
[2021-04-29 08:14] VITALS: BP 135/72
== END 2021-04-29 08:49 | disposition home or self-care (01) ==
LOC: ER 21:11
DX: E11.65 Type 2 diabetes mellitus with hyperglycemia (principal); M79.10 Myalgia, unspecified site; R10.9 Unspecified abdominal pain; F15.10 Other stimulant abuse, uncomplicated; Z79.4 Long term (current) use of insulin
CPT/HCPCS: 36415; 80053; 80305; 82010; 82962; 83880; 84484; 85025; 93005; 99284; J7030

== ENCOUNTER 2021-06-02 05:55 | Emergency (ER) | payer MEDICAID ==
[~2021-06-02] VITALS: Ht 162.6 cm; Wt 77.0 kg
[2021-06-02] MEDS ORDERED: LORAZEPAM 2MG/ML CPJ IV ONE (06:15)
[2021-06-02] MEDS ORDERED: SODIUM CHLORIDE 0.9% 1,000 ML IV ONE (06:15)
[2021-06-02] MEDS ORDERED: CITALOPRAM HYDROBROMIDE 10MG TABLET PO SCH (09:00)
[2021-06-02 11:18] LABS: BASOPHILS % 0.4 % (0.0-2.0); EOSINOPHILS % 0.1 % (0.0-5.0); HEMATOCRIT. 42.4 % (42.0-52.0); LYMPHOCYTES % 9.1 % (20.0-50.0); MEAN CORPUSCULAR HEMOGLOBIN 26.7 pg (28.0-32.0); MEAN CORPUSCULAR VOLUME 80.9 fL (80.0-94.0); MEAN PLATELET VOLUME 10.1 fl (7.4-10.4); MONOCYTES % 7.3 % (2.0-8.0); NEUTROPHILS % 83.1 % (40.0-76.0); PLATELET 325 x1000/uL (130-400); RED BLOOD CELL COUNT 5.24 mill/uL (4.7-6.1); RED CELL DISTRIBUTION WIDTH 16.9 % (11.6-14.6)
[2021-06-02 11:26] LABS: CHLORIDE 99 mEq/L (98-107)
[2021-06-02 11:30] LABS: ETHANOL BLOOD < 10 mg/dL
[2021-06-02 13:04] LABS: CANNABINOID URINE SCREEN PRESUMTIVE POSITIVE (NEGATIVE); METHADONE URINE SCREEN NEGATIVE (NEGATIVE); OPIATES URINE SCREEN NEGATIVE (NEGATIVE); PHENCYCLIDINE URINE SCREEN NEGATIVE (NEGATIVE)
[2021-06-02 13:07] LABS: *AMPHETAMINES SCREEN URINE PRESUMTIVE POSITIVE (NEGATIVE); *BENZODIAZEPINES SCREEN URINE NEGATIVE (NEGATIVE)
[2021-06-02 13:10] LABS: *BARBITURATES SCREEN URINE NEGATIVE (NEGATIVE)
[2021-06-02 13:12] LABS: *COCAINE SCREEN URINE NEGATIVE (NEGATIVE)
[2021-06-02 20:00] VITALS: BP 136/72
== END 2021-06-02 20:29 | disposition home or self-care (01) ==
LOC: ER 05:55
DX: F15.129 Other stimulant abuse with intoxication, unspecified (principal); E11.9 Type 2 diabetes mellitus without complications; Z79.4 Long term (current) use of insulin
CPT/HCPCS: 36415; 80053; 80305; 80320; 82962; 85025; 93005; 96361; 96374; 99285; J2060; J7030; G0480

== ENCOUNTER 2021-06-16 05:12 | Emergency (ER) | payer MEDICAID ==
[~2021-06-16] VITALS: Ht 170.2 cm; Wt 78.6 kg
[2021-06-16 05:14] VITALS: BP 153/108
[2021-06-16 06:29] LABS: BASOPHILS % 0.4 % (0.0-2.0); EOSINOPHILS % 0.3 % (0.0-5.0); HEMATOCRIT. 44.6 % (42.0-52.0); LYMPHOCYTES % 22.3 % (20.0-50.0); MEAN CORPUSCULAR HEMOGLOBIN 27.4 pg (28.0-32.0); MEAN CORPUSCULAR VOLUME 81.7 fL (80.0-94.0); MEAN PLATELET VOLUME 10.5 fl (7.4-10.4); MONOCYTES % 10.6 % (2.0-8.0); NEUTROPHILS % 66.4 % (40.0-76.0); PLATELET 337 x1000/uL (130-400); RED BLOOD CELL COUNT 5.46 mill/uL (4.7-6.1); RED CELL DISTRIBUTION WIDTH 17.1 % (11.6-14.6)
[2021-06-16 06:37] LABS: CHLORIDE 99 mEq/L (98-107)
[2021-06-16 06:44] LABS: ETHANOL BLOOD < 10 mg/dL
[2021-06-16 09:42] LABS: CLARITY URINE CLEAR (CLEAR); COLOR URINE YELLOW (YELLOW); KETONES URINE 3+ (NEGATIVE); LEUKOCYTE ESTERASE URINE NEGATIVE (NEGATIVE); NITRITE URINE NEGATIVE (NEGATIVE); OCCULT BLOOD URINE NEGATIVE (NEGATIVE); PH URINE 5.5 (4.5-8.0); PROTEIN URINE 1+ (NEGATIVE); SPECIFIC GRAVITY URINE 1.029 (1.005-1.030); UROBILINOGEN URINE 0.2 E.U./dL (0.2-1.0)
[2021-06-16 09:57] LABS: *AMPHETAMINES SCREEN URINE PRESUMTIVE POSITIVE (NEGATIVE); *BARBITURATES SCREEN URINE NEGATIVE (NEGATIVE); *BENZODIAZEPINES SCREEN URINE NEGATIVE (NEGATIVE); *COCAINE SCREEN URINE NEGATIVE (NEGATIVE); CANNABINOID URINE SCREEN PRESUMTIVE POSITIVE (NEGATIVE); METHADONE URINE SCREEN NEGATIVE (NEGATIVE); OPIATES URINE SCREEN NEGATIVE (NEGATIVE); PHENCYCLIDINE URINE SCREEN NEGATIVE (NEGATIVE)
== END 2021-06-16 08:40 | disposition left against medical advice (07) ==
LOC: ER 05:12
DX: R00.2 Palpitations (principal); F15.10 Other stimulant abuse, uncomplicated; E11.9 Type 2 diabetes mellitus without complications; Z79.4 Long term (current) use of insulin
CPT/HCPCS: 36415; 80053; 80305; 80320; 81003; 82962; 85025; 93005; 99284; G0480

== ENCOUNTER 2021-08-14 03:46 | Emergency (ER) | payer MEDICAID ==
[~2021-08-14] VITALS: Ht 170.2 cm; Wt 79.0 kg
[2021-08-14 03:52] VITALS: BP 152/99
[2021-08-14] MEDS ORDERED: ONDANSETRON 4MG ODT PO STA (06:43)
[2021-08-14] MEDS ORDERED: MAGNESIUM/ALUMINUM HYDROXIDE/SIMETHICONE 30ML UDC PO STA (06:43)
[2021-08-14] MEDS ORDERED: VISCOUS LIDOCAINE 2% 15 ML UDC PO STA (06:43)
[2021-08-14] MEDS ORDERED: FAMOTIDINE 20MG TABLET PO ONE (06:45)
== END 2021-08-14 07:04 | disposition left against medical advice (07) ==
LOC: ER 03:46
DX: R10.9 Unspecified abdominal pain (principal); F15.19 Other stimulant abuse with unspecified stimulant-induced disorder; E11.9 Type 2 diabetes mellitus without complications; Z79.4 Long term (current) use of insulin
CPT/HCPCS: 93005; 99283

== ENCOUNTER 2021-08-14 07:41 | Emergency (ER) | payer MEDICAID ==
[~2021-08-14] VITALS: Ht 170.2 cm; Wt 80.0 kg
[2021-08-14 07:53] VITALS: BP 126/99
== END 2021-08-14 09:59 | disposition left against medical advice (07) ==
LOC: ER 08:24
DX: Z53.21 Procedure and treatment not carried out due to patient leaving prior to being seen by health care provider (principal); E11.9 Type 2 diabetes mellitus without complications; Z79.4 Long term (current) use of insulin
CPT/HCPCS: 93005

== ENCOUNTER 2021-11-01 22:28 | Emergency (ER) | payer MEDICAID ==
[~2021-11-01] VITALS: Ht 170.2 cm; Wt 79.0 kg
[2021-11-01] MEDS ORDERED: SODIUM CHLORIDE 0.9% 1,000 ML IV ONE (23:00)
[2021-11-01] MEDS ORDERED: ONDANSETRON HCL 4MG/2ML INJ IV ONE (23:00)
[2021-11-01 23:32] LABS: BASOPHILS % 0.5 % (0.0-2.0); EOSINOPHILS % 0.3 % (0.0-5.0); HEMATOCRIT. 43.6 % (42.0-52.0); HEMOGLOBIN. 14.3 g/dL (14.0-18.0); LYMPHOCYTES % 13.3 % (20.0-50.0); MEAN CORPUSCULAR HEMOGLOBIN 25.9 pg (28.0-32.0); MEAN CORPUSCULAR VOLUME 78.7 fL (80.0-94.0); MEAN PLATELET VOLUME 9.7 fl (7.4-10.4); MONOCYTES % 9.2 % (2.0-8.0); NEUTROPHILS % 76.7 % (40.0-76.0); PLATELET 265 x1000/uL (130-400); RED BLOOD CELL COUNT 5.53 mill/uL (4.7-6.1); RED CELL DISTRIBUTION WIDTH 19.4 % (11.6-14.6)
[2021-11-01 23:37] LABS: CHLORIDE 102 mEq/L (98-107)
[2021-11-01] MEDS ORDERED: IBUPROFEN 600MG TABLET PO NR (23:45)
[2021-11-01 23:46] LABS: BETA HYDROXYBUTYRATE 0.1 mMol/L (0.0-0.3)
[2021-11-01 23:48] LABS: CLARITY URINE CLEAR (CLEAR); COLOR URINE YELLOW (YELLOW); KETONES URINE 4+ (NEGATIVE); LEUKOCYTE ESTERASE URINE TRACE (NEGATIVE); NITRITE URINE NEGATIVE (NEGATIVE); OCCULT BLOOD URINE NEGATIVE (NEGATIVE); PROTEIN URINE 2+ (NEGATIVE); SPECIFIC GRAVITY URINE 1.029 (1.005-1.030)
[2021-11-02] MEDS ORDERED: ONDANSETRON HCL 4MG/2ML INJ IV NR (01:15)
[2021-11-02] MEDS ORDERED: CEPH500C2 MT (01:58)
[2021-11-02 02:15] VITALS: BP 122/85
== END 2021-11-02 02:15 | disposition home or self-care (01) ==
LOC: ER 22:28
DX: N39.0 Urinary tract infection, site not specified (principal); Z20.822 Contact with and (suspected) exposure to COVID-19; F15.10 Other stimulant abuse, uncomplicated; E11.9 Type 2 diabetes mellitus without complications
CPT/HCPCS: 36415; 71045; 80053; 81003; 82010; 82962; 83690; 85025; 87426; 93005; 96361; 96374; 99285; C9803; J2405; J7030

== ENCOUNTER 2022-02-28 21:35 | Emergency (ER) | payer MEDICAID ==
[~2022-02-28] VITALS: Ht 170.2 cm; Wt 80.0 kg
[~2022-02-28 21:35] MED LIST changes: +CEPH500C2 MT
[2022-02-28 21:43] VITALS: BP 144/100
== END 2022-03-01 01:22 | disposition left against medical advice (07) ==
LOC: ER 21:47
DX: Z53.21 Procedure and treatment not carried out due to patient leaving prior to being seen by health care provider (principal); I49.9 Cardiac arrhythmia, unspecified
CPT/HCPCS: 93005

== ENCOUNTER 2022-03-22 04:29 | Emergency (ER) | payer MEDICAID ==
[~2022-03-22] VITALS: Ht 170.2 cm; Wt 79.0 kg
[2022-03-22] MEDS ORDERED: MAGNESIUM/ALUMINUM HYDROXIDE/SIMETHICONE 30ML UDC PO STA (05:27)
[2022-03-22] MEDS ORDERED: VISCOUS LIDOCAINE 2% 15 ML UDC PO STA (05:27)
[2022-03-22] MEDS ORDERED: KETOROLAC 30MG/ML VIAL IV STA (05:27)
[2022-03-22] MEDS ORDERED: SODIUM CHLORIDE 0.9% 1,000 ML IV ONE (05:45)
[2022-03-22] MEDS ORDERED: LORAZEPAM 2MG/ML CPJ IV ONE (05:45)
[2022-03-22] MEDS ORDERED: ONDANSETRON HCL 4MG/2ML INJ IV ONE (05:45)
[2022-03-22 06:06] LABS: BASOPHILS % 0.6 % (0.0-2.0); EOSINOPHILS % 0.6 % (0.0-5.0); HEMATOCRIT. 45.9 % (42.0-52.0); HEMOGLOBIN. 15.2 g/dL (14.0-18.0); LYMPHOCYTES % 14.4 % (20.0-50.0); MEAN CORPUSCULAR HEMOGLOBIN 26.7 pg (28.0-32.0); MEAN CORPUSCULAR VOLUME 80.5 fL (80.0-94.0); MONOCYTES % 9.2 % (2.0-8.0); NEUTROPHILS % 75.2 % (40.0-76.0); PLATELET 280 x1000/uL (130-400); RED CELL DISTRIBUTION WIDTH 17.9 % (11.6-14.6)
[2022-03-22 06:13] LABS: PROTHROMBIN TIME 10.9 sec (9.6-11.0)
[2022-03-22 06:17] LABS: CHLORIDE 97 mEq/L (98-107)
[2022-03-22 09:00] VITALS: BP 145/74
== END 2022-03-22 09:05 | disposition home or self-care (01) ==
LOC: ER 04:29
DX: R11.0 Nausea (principal); F15.10 Other stimulant abuse, uncomplicated; E11.9 Type 2 diabetes mellitus without complications; Z98.890 Other specified postprocedural states
CPT/HCPCS: 36415; 71045; 80053; 83690; 84484; 85025; 85610; 93005; 96374; 96375; 99285; J1885; J2060; J2405; J7030

== ENCOUNTER 2023-02-02 00:41 | Emergency (ER) | payer MEDICAID ==
[~2023-02-02] VITALS: Ht 170.2 cm; Wt 78.0 kg
[2023-02-02 00:49] VITALS: PULSE 145; RESP 16
[2023-02-02 00:51] VITALS: BP 145/100; TEMP 98.3; O2SAT 100
== END 2023-02-02 04:13 | disposition left against medical advice (07) ==
LOC: ER 00:41
DX: Z53.21 Procedure and treatment not carried out due to patient leaving prior to being seen by health care provider (principal); I49.9 Cardiac arrhythmia, unspecified
CPT/HCPCS: 93005; 99281

== ENCOUNTER 2023-02-15 21:41 | Emergency (ER) | payer MEDICAID ==
[~2023-02-15] VITALS: Ht 172.7 cm; Wt 81.6 kg
[2023-02-15 21:50] VITALS: BP 162/100; PULSE 148; RESP 18; TEMP 98.5; O2SAT 99
== END 2023-02-16 01:36 | disposition left against medical advice (07) ==
LOC: ER 21:41
DX: M79.642 Pain in left hand (principal); Z53.21 Procedure and treatment not carried out due to patient leaving prior to being seen by health care provider
CPT/HCPCS: 93005; 99281

== ENCOUNTER 2023-06-02 21:24 | Emergency (ER) | payer MEDICAID ==
[~2023-06-02] VITALS: Ht 170.2 cm; Wt 78.1 kg
[2023-06-02 21:43] VITALS: O2SAT 99
[2023-06-02] MEDS ORDERED: HYDR50TA55 PO (23:06)
[2023-06-02] MEDS: DIAZEPAM 2 MG TABLET PO ONE (23:18)
[2023-06-03 00:49] VITALS: BP 112/75; PULSE 98; RESP 18; TEMP 97.8
== END 2023-06-03 01:00 | disposition home or self-care (01) ==
LOC: ER 21:24
DX: F41.9 Anxiety disorder, unspecified (principal); E11.9 Type 2 diabetes mellitus without complications; F15.10 Other stimulant abuse, uncomplicated
CPT/HCPCS: 93005; 99283

== ENCOUNTER 2023-06-10 02:39 | Emergency (ER) | payer MEDICAID ==
[~2023-06-10] VITALS: Ht 170.2 cm; Wt 76.1 kg
[~2023-06-10 02:39] MED LIST changes: +HYDR50TA55 PO
[2023-06-10 02:55] VITALS: O2SAT 100
[2023-06-10 03:58] LABS: EOSINOPHILS % 0.1 % (0.0-5.0); MEAN PLATELET VOLUME 9.4 fl (7.4-10.4); RED CELL DISTRIBUTION WIDTH 19.6 % (11.6-14.6); WHITE BLOOD COUNT 12.6 x1000/uL (4.5-11.0)
[2023-06-10 04:09] LABS: BASOPHILS % 0.5 % (0.0-2.0); CHLORIDE 104 mEq/L (98-107); HEMATOCRIT. 38.7 % (42.0-52.0); LYMPHOCYTES % 9.2 % (20.0-50.0); MEAN CORPUSCULAR HEMOGLOBIN 21.5 pg (28.0-32.0); MEAN CORPUSCULAR VOLUME 69.3 fL (80.0-94.0); MONOCYTES % 12.3 % (2.0-8.0); NEUTROPHILS % 77.9 % (40.0-76.0); PLATELET 387 x1000/uL (130-400); POTASSIUM 4.1 mEq/L (3.5-5.1); RED BLOOD CELL COUNT 5.58 mill/uL (4.7-6.1); SODIUM 136 mEq/L (136-145)
[2023-06-10 04:10] LABS: ADD RBC MORPHOLOGY YES; CALCIUM 9.8 mg/dL (8.7-10.4); CARBON DIOXIDE 21 mEq/L (21-32); DIFFERENTIAL COMMENT 1
[2023-06-10 04:15] LABS: GLUCOSE 190 mg/dL (70-105); UREA NITROGEN BLOOD 15 mg/dL (9-23)
[2023-06-10 04:17] LABS: ALANINE AMINOTRANSFERASE 22 IU/L (10-49); ALBUMIN 5.4 g/dL (3.2-4.8); ASPARTATE AMINOTRANSFERASE 20 IU/L (<34); CREATINE KINASE 151 IU/L (46-171); PROTEIN TOTAL 8.9 g/dL (6.0-8.3)
[2023-06-10 04:22] LABS: ACETAMINOPHEN < 2 ug/mL (10-30); ETHANOL BLOOD < 10 mg/dL (<10)
[2023-06-10] MEDS: SODIUM CHLORIDE 0.9% 1,000 ML IV ONE ×2 (04:51→05:24)
[2023-06-10 04:55] LABS: MICROCYTOSIS 1+; TARGET CELLS 2+; TEAR DROP CELLS 2+
[2023-06-10 04:56] LABS: PLATELET ESTIMATE NORMAL
[2023-06-10 05:14] LABS: CLARITY URINE CLEAR (CLEAR); COLOR URINE YELLOW (YELLOW); GLUCOSE URINE 3+ (NEGATIVE); KETONES URINE 3+ (NEGATIVE); LEUKOCYTE ESTERASE URINE NEGATIVE (NEGATIVE); NITRITE URINE NEGATIVE (NEGATIVE); OCCULT BLOOD URINE NEGATIVE (NEGATIVE); PH URINE 5.5 (4.5-8.0); PROTEIN URINE 1+ (NEGATIVE); SPECIFIC GRAVITY URINE 1.042 (1.005-1.030); UROBILINOGEN URINE 0.2 E.U./dL (0.2-1.0)
[2023-06-10 05:21] LABS: *AMPHETAMINES SCREEN URINE PRESUMPTIVE POSITIVE (NEGATIVE); *BARBITURATES SCREEN URINE NEGATIVE (NEGATIVE); *BENZODIAZEPINES SCREEN URINE NEGATIVE (NEGATIVE); *COCAINE SCREEN URINE NEGATIVE (NEGATIVE)
[2023-06-10 05:22] LABS: CANNABINOID URINE SCREEN PRESUMPTIVE POSITIVE (NEGATIVE); ECSTASY MDMA SCREEN URINE CONF.TEST INDICATED (NEGATIVE); METHADONE URINE SCREEN NEGATIVE (NEGATIVE); OPIATES URINE SCREEN NEGATIVE (NEGATIVE); PHENCYCLIDINE URINE SCREEN NEGATIVE (NEGATIVE)
[2023-06-10 05:24] VITALS: TEMP 98.1
[2023-06-10] MEDS: ACETAMINOPHEN 325MG TABLET PO NR (05:24)
[2023-06-10] MEDS: LORAZEPAM 1MG TABLET PO NR (05:24)
[2023-06-10 05:43] VITALS: BP 158/99; PULSE 127; RESP 18
[2023-06-10 05:48] LABS: SQUAMOUS EPITHELIAL CELL URINE FEW /lpf (RARE/1+)
[2023-06-10 05:51] LABS: BACTERIA URINE NONE SEEN; RBC URINE 0-2 /hpf (0-2)
== END 2023-06-10 06:20 | disposition left against medical advice (07) ==
LOC: ER 02:39
DX: F15.90 Other stimulant use, unspecified, uncomplicated (principal); E11.9 Type 2 diabetes mellitus without complications; Z98.890 Other specified postprocedural states
CPT/HCPCS: 80053; 80305; 81003; 80307; 80329; 80320; 82550; 83690; 85025; 36415; 93005; 96360; 96361; 99284; J7030; Z7610; G0480

== ENCOUNTER 2023-06-11 02:48 | Emergency (ER) | payer MEDICAID ==
[~2023-06-11] VITALS: Ht 172.7 cm; Wt 77.0 kg
[2023-06-11 02:55] VITALS: BP 157/96; PULSE 133; RESP 20; TEMP 98.5; O2SAT 100
== END 2023-06-11 04:35 | disposition left against medical advice (07) ==
LOC: ER 02:48
DX: F41.9 Anxiety disorder, unspecified (principal); Z53.21 Procedure and treatment not carried out due to patient leaving prior to being seen by health care provider
CPT/HCPCS: 99281

== ENCOUNTER 2023-06-22 15:31 | Emergency (ER) | payer MEDICAID ==
[~2023-06-22] VITALS: Ht 167.6 cm; Wt 75.0 kg
[2023-06-22 15:41] VITALS: BP 138/96; PULSE 145; RESP 20; TEMP 98.7; O2SAT 98
== END 2023-06-22 18:51 | disposition left against medical advice (07) ==
LOC: ER 15:31
DX: F41.9 Anxiety disorder, unspecified (principal); Z53.21 Procedure and treatment not carried out due to patient leaving prior to being seen by health care provider
CPT/HCPCS: 93005

== ENCOUNTER 2023-07-09 18:31 | Emergency (ER) | payer OTHER ==
[~2023-07-09] VITALS: Ht 172.7 cm; Wt 80.0 kg
[2023-07-09 18:36] VITALS: BP 179/114; RESP 18; TEMP 98.6; O2SAT 100
== END 2023-07-09 22:11 | disposition left against medical advice (07) ==
LOC: ER 18:31
DX: F41.9 Anxiety disorder, unspecified (principal); Z53.21 Procedure and treatment not carried out due to patient leaving prior to being seen by health care provider

== ENCOUNTER 2023-08-29 02:53 | Emergency (ER) | payer OTHER ==
[~2023-08-29] VITALS: Ht 170.2 cm; Wt 77.0 kg
[2023-08-29 03:26] VITALS: BP 133/89; PULSE 125; RESP 18; TEMP 98.6; O2SAT 99
[2023-08-29 04:11] LABS: BASOPHILS % 0.7 % (0.0-2.0); EOSINOPHILS % 1.1 % (0.0-5.0); HEMATOCRIT. 37.5 % (42.0-52.0); HEMOGLOBIN. 11.8 g/dL (14.0-18.0); MEAN CORPUSCULAR HEMOGLOBIN 21.5 pg (28.0-32.0); MEAN CORPUSCULAR HGB CONC 31.4 g/dL (31.0-37.0); MEAN CORPUSCULAR VOLUME 68.6 fL (80.0-94.0); MEAN PLATELET VOLUME 9.8 fl (7.4-10.4); MONOCYTES % 8.4 % (2.0-8.0); NEUTROPHILS % 72.8 % (40.0-76.0); PLATELET 406 x1000/uL (130-400); RED BLOOD CELL COUNT 5.47 mill/uL (4.7-6.1); RED CELL DISTRIBUTION WIDTH 21.6 % (11.6-14.6); WHITE BLOOD COUNT 9.2 x1000/uL (4.5-11.0)
[2023-08-29 04:17] LABS: ADD RBC MORPHOLOGY YES; DIFFERENTIAL COMMENT 1
[2023-08-29 04:22] LABS: CHLORIDE 102 mEq/L (98-107); POTASSIUM 3.7 mEq/L (3.5-5.1); SODIUM 136 mEq/L (136-145)
[2023-08-29 04:23] LABS: CALCIUM 9.7 mg/dL (8.7-10.4); CARBON DIOXIDE 27 mEq/L (21-32)
[2023-08-29 04:25] LABS: CLARITY URINE CLEAR (CLEAR); COLOR URINE YELLOW (YELLOW); GLUCOSE URINE 3+ (NEGATIVE); KETONES URINE TRACE (NEGATIVE); LEUKOCYTE ESTERASE URINE NEGATIVE (NEGATIVE); NITRITE URINE NEGATIVE (NEGATIVE); OCCULT BLOOD URINE NEGATIVE (NEGATIVE); PROTEIN URINE 1+ (NEGATIVE); SPECIFIC GRAVITY URINE 1.033 (1.005-1.030); UROBILINOGEN URINE 0.2 E.U./dL (0.2-1.0)
[2023-08-29 04:28] LABS: CREATININE 0.9 mg/dL (0.6-1.3); GLUCOSE 163 mg/dL (70-105)
[2023-08-29 04:29] LABS: UREA NITROGEN BLOOD 13 mg/dL (9-23)
[2023-08-29 04:30] LABS: ALANINE AMINOTRANSFERASE 24 IU/L (10-49); ALBUMIN 4.9 g/dL (3.2-4.8); ASPARTATE AMINOTRANSFERASE 16 IU/L (<34); BILIRUBIN DIRECT 0.3 mg/dL (<=3.0)
[2023-08-29 04:31] LABS: BILIRUBIN TOTAL 0.8 mg/dL (0.1-1.0); PROTEIN TOTAL 7.6 g/dL (6.0-8.3)
[2023-08-29 04:32] LABS: ETHANOL BLOOD < 10 mg/dL (<10)
[2023-08-29 04:35] LABS: *AMPHETAMINES SCREEN URINE PRESUMPTIVE POSITIVE (NEGATIVE); *BENZODIAZEPINES SCREEN URINE NEGATIVE (NEGATIVE)
[2023-08-29 04:36] LABS: *BARBITURATES SCREEN URINE NEGATIVE (NEGATIVE); *COCAINE SCREEN URINE NEGATIVE (NEGATIVE); CANNABINOID URINE SCREEN PRESUMPTIVE POSITIVE (NEGATIVE); ECSTASY MDMA SCREEN URINE CONF.TEST INDICATED (NEGATIVE); METHADONE URINE SCREEN NEGATIVE (NEGATIVE); OPIATES URINE SCREEN NEGATIVE (NEGATIVE); PHENCYCLIDINE URINE SCREEN NEGATIVE (NEGATIVE)
[2023-08-29 04:39] LABS: PROTHROMBIN TIME 11.3 sec (9.6-11.0)
[2023-08-29] MEDS ORDERED: MELA1TAB51 MT (05:38)
[2023-08-29] MEDS: LORAZEPAM 0.5MG TABLET PO ONE (06:07)
[2023-08-29 06:09] LABS: SQUAMOUS EPITHELIAL CELL URINE FEW /lpf (RARE/1+)
[2023-08-29 06:12] LABS: RBC URINE 0-2 /hpf (0-2); WBC URINE 0-2 /hpf (0-2)
[2023-08-29 06:14] LABS: BACTERIA URINE NONE SEEN
[2023-08-29 10:07] LABS: ANISOCYTOSIS 3+; MICROCYTOSIS 3+; PLATELET ESTIMATE SLIGHTLY INCREASED
== END 2023-08-29 07:13 | disposition home or self-care (01) ==
LOC: ER 02:53
DX: F15.10 Other stimulant abuse, uncomplicated (principal); G47.00 Insomnia, unspecified; F12.10 Cannabis abuse, uncomplicated; E11.9 Type 2 diabetes mellitus without complications; Z98.890 Other specified postprocedural states
CPT/HCPCS: 36415; 80048; 80076; 80305; 80320; 81003; 85025; 99283; G0480